=== PATIENT | female | born 1930 | race American Indian/Alaskan Native ===

== ENCOUNTER 2017-10-28 08:09 | Day surgery (SDC) | payer MEDICARE ==
[~2017-10-28 08:09] MED LIST: TETRACAINE 0.5% OS PRN
[2017-10-28] MEDS: VIGAMOX OS SCH ×3 (09:19→09:45)
[2017-10-28] MEDS: AK-Dilate OS SCH ×3 (09:19→09:45)
[2017-10-28] MEDS: MYDRIACYL OS SCH ×3 (09:19→09:45)
--- NOTE | 2017-10-28 09:49 | Anesthesia Day of Surgery ---
Anesthesia Day of Surgery - Day of Surgery Patient Examined: Yes Patient H&P Reviewed: Yes Patient is NPO: Yes Beta Blockers: Yes (last night)
--- NOTE | 2017-10-28 09:49 | Anesthesia Consultation ---
Anesthesia Consult and Med Hx Date of service: 10/28/17 - Airway Anesthetic Teeth Evaluation: Dentures ROM Head & Neck: Adequate Mental/Hyoid Distance: Adequate Mallampati Class: Class II Intubation Access Assessment: Probably Good - Pulmonary Exam CTA: Yes - Cardiac Exam Cardiac Exam: RRR - Pre-Operative Health Status ASA Pre-Surgery Classification: ASA3 Proposed Anesthetic Plan: MAC - Cardiovascular System Hx Hypertension: Yes (OVER 20 YEARS) - Central Nervous System Hx Psychiatric Problems: No - Gastrointestinal Hx Gastroesophageal Reflux Disease: Yes - Endocrine Hx Non-Insulin Dependent Diabetes: Yes - Other Systems Hx Alcohol Use: No Hx Substance Use: No Hx Cancer: Yes (breast cancer) Hx Obesity: Yes - Additional Comments Anesthesia Medical History Comments: CHF - unknown EF. can lie down flat without head elevation
[2017-10-28] MEDS ORDERED: VERSED ONE (10:22)
[2017-10-28] MEDS ORDERED: SUBLIMAZE ONE (10:23)
[2017-10-28] MEDS ORDERED: NORMODYNE IV ONE (10:55)
[2017-10-28] MEDS ORDERED: DIAMOX PO ONE (11:10)
--- NOTE | 2017-10-28 11:11 | Operative Report ---
Operative Report Operative Report: PATIENT'S NAME: DATE OF : DATE OF SURGERY: 10/28/2017 PREOPERATIVE DIAGNOSIS: Cataract left eye POSTOPERATIVE DIAGNOSIS: Same OPERATIVE PROCEDURE: Phacoemulsification with intraocular lens implantation, left eye SURGEON: Dilia Tolliver M.D. COMMUNITY SERVICE WORKER SURGEON: Wanda Lens: [id number] 24.0 D ANESTHESIA: Monitored anesthesia care in combination with topical and intracameral anesthesia because of the established specific risk of reflux, arrhythmias, or anxiety attacks associated with ocular manipulation, as well as the difficulty of the real estate loan officer to manage such potentially catastrophic events while simultaneously attempting to complete the surgical procedure and was deemed necessary for the patient's safety to have an Director Of Casework Services present during the procedure whenever possible. An Director Of Casework Services was utilized to regulate the intravenous sedation of the patient so the patient was cooperative yet not asleep in order for the patient to successfully maintain fixation of the eye on the operating light of the microscope. COMPLICATIONS: o surgical complications No blood loss. ALLERGIES: Penicillin PROGNOSIS: Excellent INDICATIONS FOR SURGERY: The patient is undergoing surgery in the hopes of eliminating or improving these visual difficulties. PROCEDURE: After arriving at the surgery center, the patient was given topical anesthetic and dilating drops, as noted in the record. The patient was then taken into the operating room and given more anesthetic drops. The eyelids , lashes, and lid margins were scrubbed with Betadine solution, and the patient was draped. The Nurse Director Of Casework Services administered IV sedation and monitored the patient during the procedure. The eye was then fixated with a 0.12, and a stab incision was made in the peripheral clear cornea into the anterior chamber. This was made on my left side. Viscoelastic was next used to fill the anterior chamber. The eye was once again fixated with the 0.12 forceps and a keratome was used make an incision in clear cornea peripherally on my right hand side temporally. The capsule forceps were used to open the central anterior capsule and then make a continuous round capsulotomy. Hydrodissection was carried out utilizing a cannula and balanced salt solution to delineate the cortical material from the capsule and the nucleus from the cortical material. The phaco tip was introduced into the eye and used to remove the anterior cortical material in the area of the capsulotomy. Then the phaco tip was buried into the nucleus, and a chopping instrument was introduced into the eye and used to provide countertraction in the nucleus between this instrument and the phaco tip fracturing the nucleus. This procedure was repeated multiple times, providing multiple small segments of the lens, and then the phaco tip was used to remove each of these segments. An I/A tip was then used to remove the remaining cortex. The anterior chamber was refilled with viscoelastic. An one-piece, acrylic intraocular lens was then placed into an inserting cartridge. The tip of the inserting cartridge was introduced into the keratome incision and into the anterior chamber. The implant was gently advanced through the cartridge and into the eye, where it unfolded, and both haptics were placed in the capsular bag, where it centered nicely and appeared to be well fixated. After placement of the intraocular lens, the I~and~A handpiece was placed back into the eye and used to remove the viscoelastic, including viscoelastic that was behind the optic of the intraocular lens. The anterior chamber was then filled with balanced salt solution, and hydration of the wound was used to cause swelling of the wound and more appropriate watertight closure. When the wound was found to be firm, the patient was asked to comment on how bright the light was. If there was no light perception at all or if the light was substantially dimmer than during the rest of the surgery, the amount of fluid in the eye was decompressed to lower the intraocular pressure until the patient could see the bright light again. This was done to avoid any damage or decreased blood flow to the optic nerve. MEDICATIONS APPLIED AT END OF SURGERY: One drop of Pred Forte and Vigamox The patient was given a shield to wear at night and was instructed not to rub or push on the eye. DISCHARGE SUMMARY: The patient was released in stable condition. The patient and those with the patient were given a written sheet of postoperative instructions and counseling on any abnormal laboratory studies. The patient is to see us tomorrow for follow-up in the office and is to call immediately for any difficulties. Dilia Tolliver M.D. Date
--- NOTE | 2017-10-28 11:12 | Short Stay Summary ---
Short Stay Documentation Date of service: 10/28/17 - History H&P: obtained from office - Allergies and Medications Current Medications: Allergies Penicillins Allergy (Verified 10/28/17 10:04) Rash Home Medications Medication Instructions Recorded Confirmed Last Taken Type Acetaminophen [Pain Relief] 325 mg PO QDAY 10/28/17 10/28/17 10/27/17 History Aspirin [Aspir-Low] 81 mg PO QDAY 10/28/17 10/28/17 10/27/17 History Calcium Carbonate/Vitamin D3 1 each PO QDAY 10/28/17 10/28/17 10/27/17 History [Calcium 500-Vit D3 200 Tablet] Carvedilol [Coreg] 3.125 mg PO BID 10/28/17 10/28/17 10/27/17 21:00 History Ferrous Sulfate [Iron] 325 mg PO QDAY 10/28/17 10/28/17 10/27/17 History Furosemide [Lasix TAB] 40 mg PO QDAY 10/28/17 10/28/17 10/27/17 History Lisinopril [Zestril] 40 mg PO QDAY 10/28/17 10/28/17 10/27/17 History Multivit-Minerals/Folic Acid [One 0.4 mg PO QDAY 10/28/17 10/28/17 10/27/17 History Daily Womens 50 Plus Tab] Potassium Chloride [Klor-Con M20] 20 meq PO QDAY 10/28/17 10/28/17 10/27/17 History Ranitidine HCl [Acid Sales Consulting Director] 150 mg PO BID 10/28/17 10/28/17 10/27/17 History Sennosides [Senna] 8.6 mg PO QDAY 10/28/17 10/28/17 10/27/17 History Simvastatin [Zocor] 20 mg PO QHS 10/28/17 10/28/17 10/27/17 History Active Medications Acetazolamide (Diamox) 500 mg PO BID ONE Stop: 10/28/17 11:11 Moxifloxacin HCl (Vigamox) 1 drops OS Q5MIN [facility] Stop: 10/28/17 15:00 Last Admin: 10/28/17 09:45 Dose: 1 drops Phenylephrine HCl (Ak-Dilate) 1 drops OS Q5MIN [facility] Stop: 03/22/18 15:00 Last Admin: 10/28/17 09:45 Dose: 1 drops Prednisolone Acetate (Pred Forte 1%) 1 drops OS QID [facility] Tetracaine HCl (Tetracaine 0.5%) 1 drops OS Q5M PRN PRN Reason: Pain Stop: 10/28/17 15:00 Last Admin: 10/28/17 09:18 Dose: 1 drops Tropicamide (Mydriacyl) 1 drops OS Q5MIN [facility] Stop: 10/28/17 15:00 Last Admin: 10/28/17 09:45 Dose: 1 drops - Brief post op/procedure progress note Date of procedure: 10/28/17 Pre-op diagnosis: left cataract Post-op diagnosis: same Procedure: Phacoemulsification with intraocular lens insertion left eye Anesthesia: MAC, local Surgeon: JOSE HORTON Estimated blood loss: none Pathology: none Condition: stable - Disposition Condition at discharge: Good Disposition: DC-01 TO HOME OR SELFCARE - Discharge Diagnoses (1) Cataract Status: Acute Qualifiers: Cataract type: age-related Age-related cataract type: nuclear Laterality : left Qualified Code(s): H25.12 - Age-related nuclear cataract, left eye Short Stay Discharge Plan Follow up with: JABIER BUCIO [Primary Care Provider] - 7 Days
[2017-10-28] MEDS ORDERED: APRESOLINE ONE (11:13)
[2017-10-28] MEDS ORDERED: APRESOLINE IV ONE ×2 (11:20→11:48)
[2017-10-28] MEDS ORDERED: PRED FORTE 1% OS SCH (14:00)
--- NOTE | 2017-10-28 14:50 | Post Anesthesia Evaluation ---
- Post Anesthesia Evaluation Patient Participated: Yes Airway Patent: Yes Stable Respiratory Function: Yes Nausea/Vomiting: No Temp > 96.8F: Yes Pain Manageable: Yes Adequeate Hydration: Yes Anesthesia Complications: No
[2017-10-28 16:02] VITALS: BP 160/80
== END 2017-10-28 13:30 | disposition home or self-care (01) ==
LOC: OR 08:09
DX: E11.36 Type 2 diabetes mellitus with diabetic cataract (principal); K21.9 Gastro-esophageal reflux disease without esophagitis; I11.0 Hypertensive heart disease with heart failure; I50.9 Heart failure, unspecified; E66.9 Obesity, unspecified; Z68.34 Body mass index [BMI] 34.0-34.9, adult; Z79.899 Other long term (current) drug therapy; Z88.0 Allergy status to penicillin; Z79.82 Long term (current) use of aspirin
CPT/HCPCS: 66984; 82962; J0360; J3010; J2250; V2632

== ENCOUNTER 2017-11-18 06:00 | Day surgery (SDC) | payer MEDICARE ==
[2017-11-18] MEDS ORDERED: TETRACAINE 0.5% OD SCH (06:36)
[2017-11-18] MEDS ORDERED: NACL BACTERIOSTATIC INFILTRATI ONE (06:38)
[2017-11-18] MEDS: AK-Dilate OD SCH ×3 (06:55→07:05)
[2017-11-18] MEDS: VIGAMOX OD SCH ×3 (06:55→07:05)
[2017-11-18] MEDS: MYDRIACYL OD SCH ×3 (06:55→07:05)
[2017-11-18] MEDS ORDERED: MORPHINE IV PRN (07:26)
[2017-11-18] MEDS ORDERED: NARCAN 0.4 MG/1 ML IV PRN (07:26)
--- NOTE | 2017-11-18 07:26 | Anesthesia Consultation ---
Anesthesia Consult and Med Hx Date of service: 11/18/17 - Airway Anesthetic Teeth Evaluation: Poor, Edentulous ROM Head & Neck: Inadequate Mental/Hyoid Distance: Adequate Mallampati Class: Class IV Intubation Access Assessment: Possibly Difficult - Pulmonary Exam CTA: Yes - Pre-Operative Health Status ASA Pre-Surgery Classification: ASA3 Proposed Anesthetic Plan: MAC Nerve Block: retrobulbar - Cardiovascular System Hx Hypertension: Yes (OVER 20 YEARS) - Central Nervous System Hx Psychiatric Problems: No - Gastrointestinal Hx Gastroesophageal Reflux Disease: Yes - Endocrine Hx Non-Insulin Dependent Diabetes: Yes - Other Systems Hx Alcohol Use: No Hx Substance Use: No Hx Cancer: Yes (breast cancer) Hx Obesity: Yes
--- NOTE | 2017-11-18 07:26 | Anesthesia Day of Surgery ---
Anesthesia Day of Surgery - Day of Surgery Patient Examined: Yes Patient H&P Reviewed: Yes Patient is NPO: Yes
[2017-11-18] MEDS ORDERED: PRED FORTE 1% ONE (07:50)
[2017-11-18] MEDS ORDERED: VERSED ONE (07:51)
[2017-11-18] MEDS ORDERED: DIAMOX PO ONE (08:43)
[2017-11-18] MEDS ORDERED: PRED FORTE 1% OD SCH (10:00)
--- NOTE | 2017-11-18 10:28 | Operative Report ---
Operative Report Operative Report: PATIENT'S NAME: DATE OF : DATE OF SURGERY: 11/18/2017 PREOPERATIVE DIAGNOSIS: Cataract right eye POSTOPERATIVE DIAGNOSIS: Same OPERATIVE PROCEDURE: Phacoemulsification with intraocular lens implantation, right eye SURGEON: Dilia Tolliver M.D. POULTRY FARM WORKER SURGEON: Wanda Lens: [id number] 23.5 D ANESTHESIA: Monitored anesthesia care in combination with topical and intracameral anesthesia because of the established specific risk of reflux, arrhythmias, or anxiety attacks associated with ocular manipulation, as well as the difficulty of the director process improvement to manage such potentially catastrophic events while simultaneously attempting to complete the surgical procedure and was deemed necessary for the patient's safety to have an Equip Tech present during the procedure whenever possible. An Equip Tech was utilized to regulate the intravenous sedation of the patient so the patient was cooperative yet not asleep in order for the patient to successfully maintain fixation of the eye on the operating light of the microscope. COMPLICATIONS: o surgical complications No blood loss. ALLERGIES: Penicillin PROGNOSIS: Excellent INDICATIONS FOR SURGERY: The patient is undergoing surgery in the hopes of eliminating or improving these visual difficulties. PROCEDURE: After arriving at the surgery center, the patient was given topical anesthetic and dilating drops, as noted in the record. The patient was then taken into the operating room and given more anesthetic drops. The eyelids , lashes, and lid margins were scrubbed with Betadine solution, and the patient was draped. The Nurse Equip Tech administered IV sedation and monitored the patient during the procedure. The eye was then fixated with a 0.12, and a stab incision was made in the peripheral clear cornea into the anterior chamber. This was made on my left side. Viscoelastic was next used to fill the anterior chamber. The eye was once again fixated with the 0.12 forceps and a keratome was used make an incision in clear cornea peripherally on my right hand side temporally. The capsule forceps were used to open the central anterior capsule and then make a continuous round capsulotomy. Hydrodissection was carried out utilizing a cannula and balanced salt solution to delineate the cortical material from the capsule and the nucleus from the cortical material. The phaco tip was introduced into the eye and used to remove the anterior cortical material in the area of the capsulotomy. Then the phaco tip was buried into the nucleus, and a chopping instrument was introduced into the eye and used to provide countertraction in the nucleus between this instrument and the phaco tip fracturing the nucleus. This procedure was repeated multiple times, providing multiple small segments of the lens, and then the phaco tip was used to remove each of these segments. An I/A tip was then used to remove the remaining cortex. The anterior chamber was refilled with viscoelastic. An one-piece, acrylic intraocular lens was then placed into an inserting cartridge. The tip of the inserting cartridge was introduced into the keratome incision and into the anterior chamber. The implant was gently advanced through the cartridge and into the eye, where it unfolded, and both haptics were placed in the capsular bag, where it centered nicely and appeared to be well fixated. After placement of the intraocular lens, the I~and~A handpiece was placed back into the eye and used to remove the viscoelastic, including viscoelastic that was behind the optic of the intraocular lens. The anterior chamber was then filled with balanced salt solution, and hydration of the wound was used to cause swelling of the wound and more appropriate watertight closure. When the wound was found to be firm, the patient was asked to comment on how bright the light was. If there was no light perception at all or if the light was substantially dimmer than during the rest of the surgery, the amount of fluid in the eye was decompressed to lower the intraocular pressure until the patient could see the bright light again. This was done to avoid any damage or decreased blood flow to the optic nerve. MEDICATIONS APPLIED AT END OF SURGERY: One drop of Pred Forte and Vigamox The patient was given a shield to wear at night and was instructed not to rub or push on the eye. DISCHARGE SUMMARY: The patient was released in stable condition. The patient and those with the patient were given a written sheet of postoperative instructions and counseling on any abnormal laboratory studies. The patient is to see us tomorrow for follow-up in the office and is to call immediately for any difficulties. Dilia Tolliver M.D. Date
--- NOTE | 2017-11-18 10:29 | Short Stay Summary ---
Short Stay Documentation Date of service: 11/18/17 - History H&P: obtained from office - Allergies and Medications Current Medications: Allergies Penicillins Allergy (Verified 10/28/17 10:04) Rash Home Medications Medication Instructions Recorded Confirmed Last Taken Type Acetaminophen [Pain Relief] 325 mg PO QDAY 10/28/17 11/18/17 11/17/17 History Aspirin [Aspir-Low] 81 mg PO QDAY 10/28/17 11/18/17 11/17/17 History Calcium Carbonate/Vitamin D3 1 each PO QDAY 10/28/17 11/18/17 11/17/17 History [Calcium 500-Vit D3 200 Tablet] Carvedilol [Coreg] 3.125 mg PO BID 10/28/17 11/18/17 11/18/17 05:00 History Ferrous Sulfate [Iron] 325 mg PO QDAY 10/28/17 11/18/17 11/17/17 History Furosemide [Lasix TAB] 40 mg PO QDAY 10/28/17 11/18/17 11/17/17 History Lisinopril [Zestril] 40 mg PO QDAY 10/28/17 11/18/17 11/18/17 05:00 History Multivit-Minerals/Folic Acid [One 0.4 mg PO QDAY 10/28/17 11/18/17 11/17/17 History Daily Womens 50 Plus Tab] Potassium Chloride [Klor-Con M20] 20 meq PO QDAY 10/28/17 11/18/17 11/17/17 History Ranitidine HCl [Acid Looping Machine Operator] 150 mg PO BID 10/28/17 11/18/17 11/17/17 History Sennosides [Senna] 8.6 mg PO QDAY 10/28/17 11/18/17 11/17/17 History Simvastatin [Zocor] 20 mg PO QHS 10/28/17 11/18/17 11/17/17 History Active Medications Morphine Sulfate (Morphine) 2 mg IV Q10MIN PRN PRN Reason: Pain, Moderate (4-6) Stop: 11/18/17 16:00 Moxifloxacin HCl (Vigamox) 1 drops OD Q5MIN [facility] Stop: 11/18/17 12:00 Last Admin: 11/18/17 07:05 Dose: 1 drops Naloxone HCl (Narcan 0.4 Mg/1 Ml) 0.1 mg IV Q2MIN PRN PRN Reason: Res Rate </= 8 or 02 SAT < 92% Phenylephrine HCl (Ak-Dilate) 1 drops OD Q5MIN [facility] Stop: 11/18/17 12:00 Last Admin: 11/18/17 07:05 Dose: 1 drops Prednisolone Acetate (Pred Forte 1%) 1 drops OD QID [facility] Last Admin: 11/18/17 08:58 Dose: 1 drops Tetracaine HCl (Tetracaine 0.5%) 1 drops OD Q5M [facility] Stop: 11/18/17 12:00 Last Admin: 11/18/17 06:55 Dose: 1 drops Tropicamide (Mydriacyl) 1 drops OD Q5MIN [facility] Stop: 11/18/17 12:00 Last Admin: 11/18/17 07:05 Dose: 1 drops - Brief post op/procedure progress note Date of procedure: 11/18/17 Pre-op diagnosis: right cataract Post-op diagnosis: same Procedure: Phacoemulsification with intraocular lens insertion right eye Anesthesia: MAC, local Surgeon: JOSE HORTON Estimated blood loss: none Specimen disposition: to lab Condition: stable - Disposition Condition at discharge: Good Disposition: DC-01 TO HOME OR SELFCARE - Discharge Diagnoses (1) Cataract Status: Acute Qualifiers: Cataract type: age-related Age-related cataract type: nuclear Laterality : right Qualified Code(s): H25.11 - Age-related nuclear cataract, right eye Short Stay Discharge Plan Additional Instructions: FOLLOW SURGEON INSTRUCTION SHEETS. Follow up with: JABIER BUCIO [Primary Care Provider] - 7 Days Forms: Outpatient Surgery [facility]
[2017-11-18 15:57] VITALS: BP 156/97
== END 2017-11-18 09:25 | disposition home or self-care (01) ==
LOC: OR 06:00
DX: E11.36 Type 2 diabetes mellitus with diabetic cataract (principal); I10 Essential (primary) hypertension; K21.9 Gastro-esophageal reflux disease without esophagitis; E66.9 Obesity, unspecified; Z68.34 Body mass index [BMI] 34.0-34.9, adult; Z79.82 Long term (current) use of aspirin; Z88.0 Allergy status to penicillin
CPT/HCPCS: 66984; 82962; J2250; V2632